=== PATIENT | female | born 1990 | race Caucasian/White ===

== ENCOUNTER 2017-09-13 10:29 | Observation (INO) ==
[2017-09-13] MEDS ORDERED: PROMETHAZINE 25 MG/1 ML VIAL IM PRN (11:28)
[2017-09-13] MEDS: DEXTROSE 5% LACTATED RINGERS 1,000 ML IV SCH ×2 (11:30→17:56)
[2017-09-13 12:03] LABS: Basophils # 0.1 10*3/uL (0.0-0.2); Basophils % 0.6 % (0.0-0.8); Eosinophils % 0.3 % (0.00-10.9); Hematocrit 37.6 VOL% (35.7-47.0); Hemoglobin 12.5 GM/DL (12.0-16.0); Immature Granulocytes % 0.6 %; Immature Granulocytes Absolute 0.05 #; Lymphocytes # 2.5 10*3/uL (1.4-4.0); Lymphocytes % 27.9 % (21.3-54.2); Mean Corpuscular HGB Conc 33.2 GM/DL (32-36); Mean Corpuscular Hemoglobin 31 PG (27-34); Mean Corpuscular Volume 94.5 FL (87-102); Mean Platelet Volume 9.3 FL (9.6-12.0); Monocytes # 0.4 10*3/uL (0.11-0.8); Monocytes % 3.9 % (1.7-12.7); Neutrophils # 5.9 10*3/uL (1.4-7.4); Neutrophils % 66.7 % (38.7-73.9); Platelet Count 269 T/CUMM (130-400); Red Blood Count 3.98 MC/CUMM (3.8-5.5); Red Cell Distribution Width 12.5 % (9.3-17.3); White Blood Count 8.9 T/CUMM (4-12)
[2017-09-13 12:33] LABS: Apearance,Urine CLOUDY (Clear); Bilirubin,Urine Negative (Negative); Blood, Urine Negative (Negative); Glucose,Urine (UA) Negative (Negative); Ketones,Urine Negative (Negative); Mucus,Urine Occasional /LPF (Occasional); Nitrite,Urine Negative (Negative); Protein,Urine Negative; Squamous Epithelial Cell,Urine Occasional /HPF (0-10); Urine Color Yellow (Yellow); Urine Specific Gravity 1.013 (1.001-1.035); Urine Urobilinogen < 2.0 EU/DL (0.2-1.0)
[2017-09-13] MEDS: ONDANSETRON 4 MG/2 ML VIAL IV PRN (16:12)
[2017-09-14] MEDS: DEXTROSE 5% LACTATED RINGERS 1,000 ML IV SCH (04:16)
[2017-09-14] MEDS: ONDANSETRON 4 MG/2 ML VIAL IV PRN (04:16)
[2017-09-14 07:11] VITALS: BP 103/58
[2017-09-14 07:17] LABS: Calcium 8.1 MG/DL (8.5-10.1); Osmolality,Calculated 274.5 MOS/KG (273-304); Potassium 3.9 MMOL/L (3.5-5.1)
[2017-09-14] MEDS ORDERED: METOCLOPRAMIDE 10 MG/2 ML VIAL IV SCH (08:00)
== END 2017-09-14 09:30 | disposition home or self-care (01) ==
LOC: N.OB
PROVIDERS: ADMIT Obstetrics & Gynecology; ATTEND Obstetrics & Gynecology

== ENCOUNTER 2020-02-20 12:14 | Inpatient (IN) ==
[2020-02-20] MEDS ORDERED: PROMETHAZINE 25 MG/1 ML VIAL IM PRN (12:16)
[2020-02-20] MEDS ORDERED: LACTULOSE 20 GM/30 ML UDCUP PO PRN (12:16)
[2020-02-20] MEDS ORDERED: diphenhydrAMINE 50 MG/1 ML VIAL IV PRN (12:24)
[2020-02-20 15:18] LABS: Basophils # 0.1 10*3/uL (0.0-0.2); Eosinophils # 0.1 10*3/uL (0.0-0.87); Eosinophils % 2.2 % (0.00-10.9); Hematocrit 38.5 VOL% (35.7-47.0); Immature Granulocytes % 0.2 %; Immature Granulocytes Absolute 0.01 #; Lymphocytes # 2.4 10*3/uL (1.4-4.0); Lymphocytes % 48.6 % (21.3-54.2); Mean Corpuscular HGB Conc 33.8 GM/DL (32-36); Mean Corpuscular Volume 93.9 FL (87-102); Mean Platelet Volume 8.9 FL (9.6-12.0); Monocytes % 8.3 % (1.7-12.7); Neutrophils % 39.7 % (38.7-73.9); Platelet Count 293 T/CUMM (130-400); Red Cell Distribution Width 11.9 % (9.3-17.3); White Blood Count 4.9 T/CUMM (4-12)
[2020-02-20] MEDS: ACETAMINOPHEN 325 MG TABLET PO SCH (15:24)
[2020-02-20] MEDS: HYDROmorphone 2 MG/1 ML VIAL IV PRN ×2 (15:26→19:46)
[2020-02-20] MEDS: SODIUM CHLORIDE 0.9% 1,000 ML IV SCH ×2 (15:30→22:42)
[2020-02-20 15:47] LABS: Calcium 8.7 MG/DL (8.5-10.1); Osmolality,Calculated 276.5 MOS/KG (273-304)
[2020-02-20] MEDS ORDERED: MAGNESIUM CITRATE 300 ML BOTTLE PO PRN (16:32)
[2020-02-20] MEDS: cefTRIAXone 1,000 MG in SYRINGE 1 EACH IV SCH (16:39)
[2020-02-20] MEDS: GENTAMICIN INJ 280 MG in SODIUM CHLORIDE 0.9% 100 ML IV SCH (18:12)
[2020-02-20 20:10] LABS: Bacteria,Urine Occasional /HPF (Few); Bilirubin,Urine Negative (Negative); Blood, Urine Negative (Negative); Glucose,Urine (UA) Negative (Negative); Ketones,Urine Negative (Negative); Mucus,Urine Occasional /LPF (Occasional); Nitrite,Urine Negative (Negative); Protein,Urine Negative; RBC,Urine 10 /HPF (0-4); Squamous Epithelial Cell,Urine Occasional /HPF (0-10); Urine Appearance Slightly Hazy (Clear); Urine Color Yellow (Yellow); Urine Specific Gravity 1.026 (1.001-1.035); Urine Urobilinogen < 2.0 EU/DL (0.2-1.0); WBC,Urine 4 /HPF (0-6)
[2020-02-20] MEDS: FAMOTIDINE 20 MG TABLET PO SCH (22:06)
[2020-02-20] MEDS: ENOXAPARIN 40 MG/0.4 ML SYRINGE SUBCUT SCH (22:06)
[2020-02-20] MEDS: ONDANSETRON 4 MG/2 ML VIAL IV PRN (22:14)
[2020-02-21] MEDS: ACETAMINOPHEN 325 MG TABLET PO SCH ×4 (01:32→18:06)
[2020-02-21] MEDS: SODIUM CHLORIDE 0.9% 1,000 ML IV SCH ×3 (03:00→23:30)
[2020-02-21] MEDS: ONDANSETRON 4 MG/2 ML VIAL IV PRN (04:12)
[2020-02-21] MEDS: HYDROmorphone 2 MG/1 ML VIAL IV PRN ×5 (04:25→20:36)
[2020-02-21 06:41] LABS: Basophils # 0.1 10*3/uL (0.0-0.2); Eosinophils # 0.1 10*3/uL (0.0-0.87); Eosinophils % 2.6 % (0.00-10.9); Hematocrit 37.1 VOL% (35.7-47.0); Hemoglobin 12.7 GM/DL (12.0-16.0); Immature Granulocytes % 0.4 %; Immature Granulocytes Absolute 0.02 #; Lymphocytes # 2.3 10*3/uL (1.4-4.0); Lymphocytes % 45.3 % (21.3-54.2); Mean Corpuscular HGB Conc 34.2 GM/DL (32-36); Mean Corpuscular Volume 95.6 FL (87-102); Mean Platelet Volume 9.4 FL (9.6-12.0); Monocytes % 8.3 % (1.7-12.7); Neutrophils % 42.4 % (38.7-73.9); Platelet Count 284 T/CUMM (130-400); Red Blood Count 3.88 MC/CUMM (3.8-5.5); Red Cell Distribution Width 11.9 % (9.3-17.3); White Blood Count 5.1 T/CUMM (4-12)
[2020-02-21 06:44] LABS: Calcium 7.3 MG/DL (8.5-10.1); Osmolality,Calculated 280.3 MOS/KG (273-304)
[2020-02-21] MEDS: TAMSULOSIN 0.4 MG CAPSULE PO SCH (08:28)
[2020-02-21] MEDS: DULoxetine 30 MG CAPSULE PO SCH (08:28)
[2020-02-21] MEDS ORDERED: INFLUENZA VIRUS VACCINE 0.5 ML SYRINGE IM ONE (09:00)
[2020-02-21] MEDS: cefTRIAXone 1,000 MG in SYRINGE 1 EACH IV SCH (16:17)
[2020-02-21] MEDS: GENTAMICIN INJ 280 MG in SODIUM CHLORIDE 0.9% 100 ML IV SCH (17:45)
[2020-02-21] MEDS: FAMOTIDINE 20 MG TABLET PO SCH (20:35)
[2020-02-21] MEDS: ENOXAPARIN 40 MG/0.4 ML SYRINGE SUBCUT SCH (20:38)
[2020-02-22] MEDS: ACETAMINOPHEN 325 MG TABLET PO SCH ×4 (00:27→17:01)
[2020-02-22] MEDS: HYDROmorphone 2 MG/1 ML VIAL IV PRN ×5 (04:41→22:35)
[2020-02-22] MEDS: SODIUM CHLORIDE 0.9% 1,000 ML IV SCH ×2 (05:17→12:04)
[2020-02-22 05:42] LABS: Basophils % 0.7 % (0.0-0.8); Eosinophils # 0.1 10*3/uL (0.0-0.87); Eosinophils % 2.4 % (0.00-10.9); Hematocrit 35.8 VOL% (35.7-47.0); Hemoglobin 11.7 GM/DL (12.0-16.0); Immature Granulocytes % 0.2 %; Immature Granulocytes Absolute 0.01 #; Lymphocytes # 2.5 10*3/uL (1.4-4.0); Lymphocytes % 54.5 % (21.3-54.2); Mean Corpuscular HGB Conc 32.7 GM/DL (32-36); Mean Platelet Volume 10.2 FL (9.6-12.0); Neutrophils % 33.2 % (38.7-73.9); Platelet Count 222 T/CUMM (130-400); Red Blood Count 3.73 MC/CUMM (3.8-5.5); White Blood Count 4.6 T/CUMM (4-12)
[2020-02-22 05:46] LABS: Calcium 7.7 MG/DL (8.5-10.1); Osmolality,Calculated 278.3 MOS/KG (273-304)
[2020-02-22 06:51] LABS: Eosinophils 2 % (0-10); Lymphocytes 54 % (20-55); Segmented Neutrophils 43 % (50-85); Total Cells Counted 100
[2020-02-22 06:53] LABS: Polychromasia Slight
[2020-02-22 06:57] LABS: Platelet Estimate Normal
[2020-02-22] MEDS: DULoxetine 30 MG CAPSULE PO SCH (09:22)
[2020-02-22] MEDS: TAMSULOSIN 0.4 MG CAPSULE PO SCH (09:22)
[2020-02-22] MEDS: cefTRIAXone 1,000 MG in SYRINGE 1 EACH IV SCH (15:28)
[2020-02-22] MEDS: PHENAZOPYRIDINE 95 MG TABLET PO SCH (16:09)
[2020-02-22] MEDS: GENTAMICIN INJ 280 MG in SODIUM CHLORIDE 0.9% 100 ML IV SCH (17:03)
[2020-02-22] MEDS: FAMOTIDINE 20 MG TABLET PO SCH (20:34)
[2020-02-22] MEDS: ENOXAPARIN 40 MG/0.4 ML SYRINGE SUBCUT SCH (20:35)
[2020-02-23] MEDS: ACETAMINOPHEN 325 MG TABLET PO SCH ×4 (00:39→18:01)
[2020-02-23] MEDS: SODIUM CHLORIDE 0.9% 1,000 ML IV SCH ×4 (05:40→21:09)
[2020-02-23 06:08] LABS: Basophils % 0.7 % (0.0-0.8); Eosinophils # 0.2 10*3/uL (0.0-0.87); Eosinophils % 2.6 % (0.00-10.9); Hematocrit 34.3 VOL% (35.7-47.0); Hemoglobin 11.3 GM/DL (12.0-16.0); Immature Granulocytes % 0.2 %; Immature Granulocytes Absolute 0.01 #; Lymphocytes # 3.1 10*3/uL (1.4-4.0); Lymphocytes % 52.7 % (21.3-54.2); Mean Corpuscular HGB Conc 32.9 GM/DL (32-36); Mean Corpuscular Volume 95.5 FL (87-102); Mean Platelet Volume 9.9 FL (9.6-12.0); Monocytes % 7.4 % (1.7-12.7); Neutrophils % 36.4 % (38.7-73.9); Platelet Count 253 T/CUMM (130-400); Red Blood Count 3.59 MC/CUMM (3.8-5.5); White Blood Count 5.8 T/CUMM (4-12)
[2020-02-23 06:34] LABS: Calcium 8.3 MG/DL (8.5-10.1); Osmolality,Calculated 279.1 MOS/KG (273-304)
[2020-02-23 06:51] LABS: Atypical Lymphocytes Few; Eosinophils 5 % (0-10); Lymphocytes 49 % (20-55); Segmented Neutrophils 40 % (50-85); Total Cells Counted 100
[2020-02-23 06:52] LABS: Microcytosis Slight; Platelet Estimate Normal
[2020-02-23] MEDS: HYDROmorphone 2 MG/1 ML VIAL IV PRN ×4 (08:23→22:08)
[2020-02-23] MEDS: TAMSULOSIN 0.4 MG CAPSULE PO SCH (08:24)
[2020-02-23] MEDS: PHENAZOPYRIDINE 95 MG TABLET PO SCH ×2 (08:24→18:01)
[2020-02-23] MEDS: DULoxetine 30 MG CAPSULE PO SCH (08:24)
[2020-02-23] MEDS ORDERED: SCOPOLAMINE 1.5 MG PATCH TRANSDERM ONE (14:45)
[2020-02-23] MEDS ORDERED: cefTRIAXone 1,000 MG VIAL ONE (15:19)
[2020-02-23] MEDS: cefTRIAXone 1,000 MG in SYRINGE 1 EACH IV SCH (15:48)
[2020-02-23] MEDS ORDERED: PROMETHAZINE 25 MG/1 ML VIAL ONE (16:40)
[2020-02-23] MEDS ORDERED: fentaNYL 100 MCG/2 ML VIAL ONE (16:40)
[2020-02-23] MEDS ORDERED: LIDOCAINE 2% 5 ML VIAL ONE (16:40)
[2020-02-23] MEDS ORDERED: SEVOFLURANE 1 UNIT/15 MINUTE INH ONE (16:40)
[2020-02-23] MEDS ORDERED: MIDAZOLAM 2 MG/2 ML VIAL ONE (16:40)
[2020-02-23] MEDS ORDERED: DEXAMETHASONE 4 MG/1 ML VIAL ONE (16:40)
[2020-02-23] MEDS ORDERED: propofoL 200 MG/20 ML VIAL IV ONE ×2 (16:40→16:41)
[2020-02-23] MEDS ORDERED: ONDANSETRON 4 MG/2 ML VIAL ONE (16:41)
[2020-02-23] MEDS ORDERED: ROCURONIUM 100 MG/10 ML VIAL IV ONE (16:41)
[2020-02-23] MEDS ORDERED: LACTATED RINGERS 1,000 ML IV ONE (16:41)
[2020-02-23] MEDS ORDERED: NEOSTIGMINE 10 MG/10 ML VIAL ONE (16:41)
[2020-02-23] MEDS ORDERED: GLYCOPYRROLATE 0.4 MG/2 ML VIAL ONE (16:41)
[2020-02-23] MEDS: GENTAMICIN INJ 280 MG in SODIUM CHLORIDE 0.9% 100 ML IV SCH (18:00)
[2020-02-23] MEDS: FAMOTIDINE 20 MG TABLET PO SCH (21:09)
[2020-02-23] MEDS: ENOXAPARIN 40 MG/0.4 ML SYRINGE SUBCUT SCH (21:09)
[2020-02-24] MEDS: HYDROmorphone 2 MG/1 ML VIAL IV PRN ×4 (00:09→10:19)
[2020-02-24] MEDS: ACETAMINOPHEN 325 MG TABLET PO SCH ×2 (00:09→05:41)
[2020-02-24] MEDS: SODIUM CHLORIDE 0.9% 1,000 ML IV SCH (07:43)
[2020-02-24] MEDS: TAMSULOSIN 0.4 MG CAPSULE PO SCH (08:01)
[2020-02-24] MEDS: DULoxetine 30 MG CAPSULE PO SCH (08:01)
[2020-02-24] MEDS: PHENAZOPYRIDINE 95 MG TABLET PO SCH (08:01)
[2020-02-24 08:33] VITALS: BP 107/64
[2020-02-26 23:36] LABS: Stone Source Left Ureter
== END 2020-02-24 11:13 | disposition home or self-care (01) | DRG 661 ==
LOC: SUATTDRO 14:30 → N.3E 14:43
PROVIDERS: ADMIT Internal Medicine; ATTEND Internal Medicine

== ENCOUNTER 2020-05-27 21:46 | Observation (INO) ==
[2020-05-27] MEDS ORDERED: PROMETHAZINE 25 MG/1 ML VIAL IM PRN (23:19)
[2020-05-27] MEDS: MORPHINE 4 MG/1 ML VIAL IV PRN (23:38)
[2020-05-27] MEDS: DEXTROSE 5% NACL 0.45% 1,000 ML IV SCH (23:53)
[2020-05-28] MEDS: MORPHINE 4 MG/1 ML VIAL IV PRN ×2 (03:30→11:07)
[2020-05-28] MEDS: ONDANSETRON 4 MG/2 ML VIAL IV PRN ×2 (03:30→11:04)
[2020-05-28 05:29] LABS: Basophils % 0.3 % (0.0-0.8); Eosinophils # 0.1 10*3/uL (0.0-0.87); Eosinophils % 1.2 % (0.00-10.9); Hematocrit 37.1 VOL% (35.7-47.0); Immature Granulocytes % 0.4 %; Immature Granulocytes Absolute 0.04 #; Lymphocytes # 3.3 10*3/uL (1.4-4.0); Lymphocytes % 36.6 % (21.3-54.2); Mean Corpuscular HGB Conc 32.3 GM/DL (32-36); Mean Corpuscular Volume 94.2 FL (87-102); Mean Platelet Volume 9.7 FL (9.6-12.0); Monocytes % 6.8 % (1.7-12.7); Neutrophils % 54.7 % (38.7-73.9); Platelet Count 328 T/CUMM (130-400); Red Blood Count 3.94 MC/CUMM (3.8-5.5); Red Cell Distribution Width 11.7 % (9.3-17.3)
[2020-05-28 05:38] LABS: Calcium 8.3 MG/DL (8.5-10.1); Osmolality,Calculated 275.5 MOS/KG (273-304); Potassium 3.7 MMOL/L (3.5-5.1)
[2020-05-28] MEDS: DEXTROSE 5% NACL 0.45% 1,000 ML IV SCH ×2 (09:42→16:45)
[2020-05-28] MEDS ORDERED: INFLUENZA VIRUS VACCINE 0.5 ML SYRINGE IM ONE (10:14)
[2020-05-28 12:17] VITALS: BP 99/65
[2020-05-28] MEDS: HYDROmorphone 2 MG/1 ML VIAL IV PRN ×2 (13:20→16:36)
== END 2020-05-28 16:45 | disposition home or self-care (01) ==
LOC: N.ED 21:46 → N.EDINP 21:46 → N.4E 05-28 10:09
PROVIDERS: ADMIT Surgery; ATTEND Surgery

== ENCOUNTER 2020-10-05 19:40 | Observation (INO) ==
[2020-10-05] MEDS ORDERED: KETOROLAC 30 MG/1 ML VIAL IV STA (22:12)
[2020-10-05] MEDS ORDERED: SODIUM CHLORIDE 0.9% 1,000 ML IV STA (22:12)
[2020-10-05] MEDS ORDERED: HYDROmorphone 2 MG/1 ML VIAL IV STA (22:12)
[2020-10-05] MEDS ORDERED: ONDANSETRON 4 MG/2 ML VIAL IV STA (22:12)
[2020-10-05 22:25] LABS: Basophils # 0.1 10*3/uL (0.0-0.2); Basophils % 0.6 % (0.0-0.8); Eosinophils # 0.2 10*3/uL (0.0-0.87); Eosinophils % 2.5 % (0.00-10.9); Hematocrit 37.1 VOL% (35.7-47.0); Hemoglobin 12.4 GM/DL (12.0-16.0); Immature Granulocytes % 0.2 %; Immature Granulocytes Absolute 0.02 #; Lymphocytes # 3.1 10*3/uL (1.4-4.0); Lymphocytes % 37.1 % (21.3-54.2); Mean Corpuscular HGB Conc 33.4 GM/DL (32-36); Mean Corpuscular Volume 94.9 FL (87-102); Mean Platelet Volume 9.5 FL (9.6-12.0); Monocytes % 7.4 % (1.7-12.7); Neutrophils % 52.2 % (38.7-73.9); Platelet Count 322 T/CUMM (130-400); Red Blood Count 3.91 MC/CUMM (3.8-5.5); Red Cell Distribution Width 12.2 % (9.3-17.3); White Blood Count 8.4 T/CUMM (4-12)
[2020-10-05 22:36] LABS: Bilirubin,Urine Negative (Negative); Blood, Urine Large mg/dL (Negative); Glucose,Urine (UA) Negative (Negative); Ketones,Urine Negative (Negative); Nitrite,Urine Negative (Negative); Protein,Urine 100 MG/DL; RBC,Urine 2998 /HPF (0-4); Squamous Epithelial Cell,Urine Occasional /HPF (0-10); Urine Appearance CLOUDY (Clear); Urine Color Amber (Yellow); Urine Urobilinogen < 2.0 EU/DL (0.2-1.0)
[2020-10-05 22:37] LABS: Alanine Aminotransferase 387 U/L (13-56); Albumin 3.5 G/DL (3.4-5.0); Alkaline Phosphatase 121 U/L (45-117); Amylase 41 U/L (25-115); Aspartate Amino Transferase 111 U/L (0-37); Bilirubin,Total < 0.39 MG/DL (0.2-1.0); Blood Urea Nitrogen 18 MG/DL (7-18); Carbon Dioxide 29 MMOL/L (21-32); Estimated Glom Filtration Rate 107 ML/MIN; Glucose 93 MG/DL (74-106); Osmolality,Calculated 274.8 MOS/KG (273-304); Sodium 137 MMOL/L (136-145); Total Protein 6.9 G/DL (6.4-8.2)
[2020-10-05] MEDS ORDERED: MEROPENEM 500 MG in SODIUM CHLORIDE 0.9% 100 ML IV ONE (23:05)
[2020-10-06] MEDS ORDERED: oxyCODONE/ACETAMINOPHEN 5-325 MG TABLET PO PRN (01:22)
[2020-10-06] MEDS ORDERED: ACETAMINOPHEN 325 MG TABLET PO PRN (01:22)
[2020-10-06] MEDS ORDERED: ONDANSETRON 4 MG/2 ML VIAL IV PRN (01:22)
[2020-10-06] MEDS ORDERED: PROMETHAZINE 25 MG/1 ML VIAL IM PRN (01:22)
[2020-10-06] MEDS: HYDROmorphone 2 MG/1 ML VIAL IV PRN ×7 (01:40→21:52)
[2020-10-06] MEDS: SODIUM CHLORIDE 0.9% 1,000 ML IV SCH ×4 (04:30→17:14)
[2020-10-06 05:31] LABS: Basophils % 0.5 % (0.0-0.8); Eosinophils # 0.3 10*3/uL (0.0-0.87); Immature Granulocytes % 0.4 %; Immature Granulocytes Absolute 0.03 #; Lymphocytes # 3.3 10*3/uL (1.4-4.0); Lymphocytes % 40.1 % (21.3-54.2); Mean Corpuscular HGB Conc 32.4 GM/DL (32-36); Mean Corpuscular Volume 96.6 FL (87-102); Mean Platelet Volume 9.7 FL (9.6-12.0); Monocytes % 9.8 % (1.7-12.7); Neutrophils % 46.2 % (38.7-73.9); Platelet Count 259 T/CUMM (130-400); Red Blood Count 3.52 MC/CUMM (3.8-5.5); Red Cell Distribution Width 12.4 % (9.3-17.3); White Blood Count 8.3 T/CUMM (4-12)
[2020-10-06 05:53] LABS: Albumin 2.7 G/DL (3.4-5.0); Bilirubin,Total 0.5 MG/DL (0.2-1.0); Calcium 8.1 MG/DL (8.5-10.1); Osmolality,Calculated 280.4 MOS/KG (273-304); Potassium 3.8 MMOL/L (3.5-5.1); Total Protein 5.8 G/DL (6.4-8.2)
[2020-10-06] MEDS ORDERED: MEROPENEM 500 MG in SODIUM CHLORIDE 0.9% 100 ML IV SCH (06:00)
[2020-10-06] MEDS: OXYBUTYNIN XL 10 MG TABLET PO SCH (08:59)
[2020-10-06] MEDS: TAMSULOSIN 0.4 MG CAPSULE PO SCH (09:00)
[2020-10-06] MEDS ORDERED: MELOXICAM 15 MG PO SCH (09:00)
[2020-10-06] MEDS ORDERED: NITROFURANTOIN MACRO/MONO 100 MG CAPSULE PO SCH (09:00)
[2020-10-06] MEDS: LISDEXAMFETAMINE 30 MG PO SCH (09:04)
[2020-10-06] MEDS: KETOROLAC 10 MG TABLET PO SCH (11:27)
[2020-10-06] MEDS: MEROPENEM 500 MG in SODIUM CHLORIDE 0.9% 100 ML IV SCH ×2 (13:13→21:56)
[2020-10-06 13:36] LABS: Hepatitis B Core IgM Quant 0.06 Index; Hepatitis B Surface Ag Quant 0.13 Index; Hepatitis B Surface Ag Result Non-Reactive (NonReactive); Hepatitis C Virus Ab Quant 0.05 Index; Hepatitis C Virus Ab Result Non-Reactive (NonReactive)
[2020-10-06] MEDS: PHENAZOPYRIDINE 95 MG TABLET PO SCH ×2 (14:38→17:47)
[2020-10-06] MEDS ORDERED: traZODone 50 MG TABLET PO SCH (21:00)
[2020-10-07] MEDS: HYDROmorphone 2 MG/1 ML VIAL IV PRN ×4 (01:01→14:42)
[2020-10-07] MEDS: SODIUM CHLORIDE 0.9% 1,000 ML IV SCH ×3 (04:29→14:46)
[2020-10-07] MEDS: MEROPENEM 500 MG in SODIUM CHLORIDE 0.9% 100 ML IV SCH ×2 (05:35→14:09)
[2020-10-07] MEDS: KETOROLAC 10 MG TABLET PO SCH ×2 (06:50→10:16)
[2020-10-07] MEDS: OXYBUTYNIN XL 10 MG TABLET PO SCH (08:55)
[2020-10-07] MEDS: TAMSULOSIN 0.4 MG CAPSULE PO SCH (08:56)
[2020-10-07] MEDS: PHENAZOPYRIDINE 95 MG TABLET PO SCH ×3 (08:56→17:12)
[2020-10-07] MEDS: LISDEXAMFETAMINE 30 MG PO SCH (10:16)
[2020-10-07 15:50] VITALS: BP 97/59
[2020-10-07 19:17] LABS: % Iron Saturation 12.5 % (18-50); Ferritin 15.3 ng/ml (8-252)
[2020-10-11 14:46] LABS: Antinuclear Ab, S 0.2 U
== END 2020-10-07 18:02 | disposition home or self-care (01) ==
LOC: N.ED 19:40 → N.EDINP 19:40 → N.3E 10-06 01:41
PROVIDERS: ADMIT Surgery; ATTEND Surgery

== ENCOUNTER 2020-11-08 09:40 | Observation (INO) ==
[2020-11-08 11:17] LABS: Amorphous Crystals,Urine Few /HPF (Few); Bacteria,Urine Occasional /HPF (Few); Bilirubin,Urine Negative (Negative); Blood, Urine Moderate mg/dL (Negative); Glucose,Urine (UA) Negative (Negative); Ketones,Urine Negative (Negative); Mucus,Urine Occasional /LPF (Occasional); Nitrite,Urine Negative (Negative); Protein,Urine Negative; RBC,Urine 79 /HPF (0-4); Squamous Epithelial Cell,Urine Occasional /HPF (0-10); Urine Appearance Slightly Hazy (Clear); Urine Color Yellow (Yellow); Urine Specific Gravity 1.018 (1.001-1.035); Urine Urobilinogen < 2.0 EU/DL (0.2-1.0)
[2020-11-08 11:22] LABS: Basophils % 0.6 % (0.0-0.8); Eosinophils # 0.1 10*3/uL (0.0-0.87); Eosinophils % 1.6 % (0.00-10.9); Hematocrit 37.6 VOL% (35.7-47.0); Hemoglobin 12.4 GM/DL (12.0-16.0); Immature Granulocytes % 0.2 %; Immature Granulocytes Absolute 0.01 #; Lymphocytes # 2.2 10*3/uL (1.4-4.0); Lymphocytes % 42.9 % (21.3-54.2); Mean Corpuscular Volume 94.2 FL (87-102); Mean Platelet Volume 9.8 FL (9.6-12.0); Monocytes % 9.2 % (1.7-12.7); Neutrophils % 45.5 % (38.7-73.9); Platelet Count 240 T/CUMM (130-400); Red Blood Count 3.99 MC/CUMM (3.8-5.5); Red Cell Distribution Width 11.9 % (9.3-17.3); White Blood Count 5.1 T/CUMM (4-12)
[2020-11-08 11:47] LABS: Albumin 3.5 G/DL (3.4-5.0); Bilirubin,Total 0.4 MG/DL (0.20-1.00); Calcium 8.7 MG/DL (8.5-10.1); Osmolality,Calculated 276.7 MOS/KG (273-304); Potassium 4.4 MMOL/L (3.5-5.1)
[2020-11-08] MEDS ORDERED: cefTRIAXone 1,000 MG in SODIUM CHLORIDE 0.9% 100 ML IV ONE ×2 (13:03→18:48)
[2020-11-08] MEDS ORDERED: HYDROmorphone 2 MG/1 ML VIAL IV STA (13:04)
[2020-11-08] MEDS ORDERED: ONDANSETRON 4 MG/2 ML VIAL IV STA (13:04)
[2020-11-08] MEDS: SODIUM CHLORIDE 0.9% 1,000 ML IV SCH (13:45)
[2020-11-08] MEDS ORDERED: HYDROmorphone 2 MG/1 ML VIAL IV ONE (16:46)
[2020-11-08] MEDS ORDERED: DEXAMETHASONE 4 MG/1 ML VIAL ONE ×2 (17:14→18:31)
[2020-11-08] MEDS ORDERED: MIDAZOLAM 2 MG/2 ML VIAL ONE (17:14)
[2020-11-08] MEDS ORDERED: propofoL 200 MG/20 ML VIAL IV ONE (17:14)
[2020-11-08] MEDS ORDERED: LIDOCAINE 2% 5 ML VIAL ONE (17:14)
[2020-11-08] MEDS ORDERED: ONDANSETRON 4 MG/2 ML VIAL ONE (17:14)
[2020-11-08] MEDS ORDERED: SEVOFLURANE 1 UNIT/15 MINUTE INH ONE (17:17)
[2020-11-08] MEDS ORDERED: GENTAMICIN 80 MG/2 ML VIAL ONE (18:20)
[2020-11-08] MEDS ORDERED: ePHEDrine 50 MG/ML VIAL ONE (18:25)
[2020-11-08] MEDS ORDERED: PHENYLEPHRINE 1 MG/10 ML SYRINGE IV ONE ×2 (18:28→18:32)
[2020-11-08] MEDS: LACTATED RINGERS 1,000 ML IV SCH (18:45)
[2020-11-08] MEDS ORDERED: PROMETHAZINE INJ 25 MG in SODIUM CHLORIDE 0.9% 50 ML IV PRN (18:46)
[2020-11-08] MEDS ORDERED: ONDANSETRON 4 MG/2 ML VIAL IV PRN (18:46)
[2020-11-08] MEDS ORDERED: diphenhydrAMINE 50 MG/1 ML VIAL IV PRN (18:46)
[2020-11-08] MEDS ORDERED: MEPERIDINE 25 MG/1 ML VIAL IV PRN (18:46)
[2020-11-08] MEDS ORDERED: PHENAZOPYRIDINE 95 MG TABLET PO PRN (18:48)
[2020-11-08] MEDS ORDERED: KETOROLAC 15 MG/1 ML VIAL IV PRN (18:50)
[2020-11-08] MEDS ORDERED: KETOROLAC 30 MG/1 ML VIAL ONE (19:01)
[2020-11-08] MEDS: HYDROmorphone 2 MG/1 ML VIAL IV PRN ×4 (19:05→19:20)
[2020-11-08] MEDS ORDERED: SODIUM CHLORIDE 0.9% 100 ML IV ONE (19:38)
[2020-11-09] MEDS: LACTATED RINGERS 1,000 ML IV SCH (00:27)
[2020-11-09] MEDS: HYDROmorphone 2 MG/1 ML VIAL IV PRN ×2 (01:31→06:50)
[2020-11-09] MEDS: SODIUM CHLORIDE 0.9% 1,000 ML IV SCH ×2 (03:54→07:18)
[2020-11-09 07:56] VITALS: BP 88/49
== END 2020-11-09 08:54 | disposition home or self-care (01) ==
LOC: N.ED 09:40 → N.EDINP 09:40 → N.3E 17:20
PROVIDERS: ADMIT Surgery; ATTEND Surgery

== ENCOUNTER 2022-02-26 17:24 | Observation (INO) ==
[2022-02-26 18:07] LABS: Basophils % 0.6 % (0.0-0.8); Eosinophils # 0.1 10*3/uL (0.0-0.87); Eosinophils % 1.2 % (0.00-10.9); Hematocrit 36.8 VOL% (35.7-47.0); Hemoglobin 12.2 GM/DL (12.0-16.0); Immature Granulocytes % 0.1 %; Immature Granulocytes Absolute 0.01 #; Lymphocytes # 2.7 10*3/uL (1.4-4.0); Lymphocytes % 38.1 % (21.3-54.2); Mean Corpuscular HGB Conc 33.2 GM/DL (32-36); Mean Corpuscular Volume 94.4 FL (87-102); Mean Platelet Volume 9.4 FL (9.6-12.0); Monocytes # 0.6 10*3/uL (0.11-0.8); Monocytes % 9.2 % (1.7-12.7); Neutrophils % 50.8 % (38.7-73.9); Platelet Count 268 T/CUMM (130-400); Red Cell Distribution Width 12.3 % (9.3-17.3)
[2022-02-26] MEDS ORDERED: KETOROLAC 30 MG/1 ML VIAL ONE (18:20)
[2022-02-26] MEDS ORDERED: ONDANSETRON 4 MG/2 ML VIAL ONE (18:20)
[2022-02-26] MEDS ORDERED: MORPHINE 2 MG/1 ML SYRINGE ONE ×2 (18:20)
[2022-02-26 18:27] LABS: Alanine Aminotransferase 49 U/L (13-56); Albumin 3.7 G/DL (3.4-5.0); Alkaline Phosphatase 45 U/L (45-117); Aspartate Amino Transferase 29 U/L (0-37); Bilirubin,Total < 0.39 MG/DL (0.20-1.00); Blood Urea Nitrogen 18 MG/DL (7-18); Calcium 9.1 MG/DL (8.5-10.1); Carbon Dioxide 26 MMOL/L (21-32); Chloride 110 MMOL/L (98-107); Glucose 95 MG/DL (74-106); Osmolality,Calculated 280.4 MOS/KG (273-304); Sodium 140 MMOL/L (136-145); Total Protein 6.5 G/DL (6.4-8.2)
[2022-02-26] MEDS ORDERED: MORPHINE 2 MG/1 ML SYRINGE IV STA ×2 (18:37→22:02)
[2022-02-26] MEDS ORDERED: ONDANSETRON 4 MG/2 ML VIAL IV ONE (18:37)
[2022-02-26] MEDS ORDERED: KETOROLAC 30 MG/1 ML VIAL IV STA (18:37)
[2022-02-26] MEDS ORDERED: SODIUM CHLORIDE 0.9% 1,000 ML IV STA (18:37)
[2022-02-26 19:15] LABS: Bacteria,Urine Occasional /HPF (Few); Mucus,Urine Occasional /LPF (Occasional); RBC,Urine 5 /HPF (0-4); Squamous Epithelial Cell,Urine Few /HPF (0-10)
[2022-02-26 19:26] LABS: Bilirubin,Urine Negative (Negative); Glucose,Urine (UA) Negative (Negative); Ketones,Urine Negative (Negative); Nitrite,Urine Negative (Negative); Protein,Urine Negative (Negative); Urine Appearance Clear (Clear); Urine Color Yellow (Yellow); Urine Specific Gravity 1.015 (1.001-1.035); Urine pH 7.5 (4.5-8.0)
[2022-02-26 19:27] LABS: Blood, Urine Trace mg/dL (Negative); Urine Urobilinogen 0.2 eU/dL (<2.0)
[2022-02-26] MEDS ORDERED: ACETAMINOPHEN 325 MG TABLET PO PRN (19:41)
[2022-02-26] MEDS ORDERED: ONDANSETRON 4 MG/2 ML VIAL IV PRN (19:41)
[2022-02-26] MEDS: SODIUM CHLORIDE 0.45% 1,000 ML IV SCH (20:18)
[2022-02-26] MEDS: cefTRIAXone 1,000 MG in SODIUM CHLORIDE 0.9% 100 ML IV SCH (20:51)
[2022-02-26] MEDS: PROMETHAZINE 25 MG/1 ML VIAL IM PRN (20:51)
[2022-02-27] MEDS: MORPHINE 2 MG/1 ML SYRINGE IV PRN ×5 (00:30→19:46)
[2022-02-27] MEDS: SODIUM CHLORIDE 0.45% 1,000 ML IV SCH ×3 (03:20→20:52)
[2022-02-27 05:59] LABS: Basophils % 0.4 % (0.0-0.8); Eosinophils # 0.1 10*3/uL (0.0-0.87); Eosinophils % 1.9 % (0.00-10.9); Hematocrit 34.1 VOL% (35.7-47.0); Immature Granulocytes % 0.2 %; Immature Granulocytes Absolute 0.01 #; Lymphocytes # 2.5 10*3/uL (1.4-4.0); Lymphocytes % 46.5 % (21.3-54.2); Mean Corpuscular HGB Conc 32.3 GM/DL (32-36); Mean Corpuscular Volume 96.6 FL (87-102); Mean Platelet Volume 9.6 FL (9.6-12.0); Monocytes # 0.5 10*3/uL (0.11-0.8); Monocytes % 8.9 % (1.7-12.7); Neutrophils % 42.1 % (38.7-73.9); Platelet Count 218 T/CUMM (130-400); Red Blood Count 3.53 MC/CUMM (3.8-5.5); Red Cell Distribution Width 12.5 % (9.3-17.3); White Blood Count 5.4 T/CUMM (4-12)
[2022-02-27 06:17] LABS: Calcium 7.7 MG/DL (8.5-10.1); Osmolality,Calculated 283.1 MOS/KG (273-304); Potassium 3.8 MMOL/L (3.5-5.1)
[2022-02-27] MEDS ORDERED: FLUCONAZOLE 200 MG TABLET PO ONE (14:10)
[2022-02-27] MEDS: cefTRIAXone 1,000 MG in SODIUM CHLORIDE 0.9% 100 ML IV SCH (20:52)
[2022-02-28] MEDS: MORPHINE 2 MG/1 ML SYRINGE IV PRN ×9 (00:20→18:50)
[2022-02-28] MEDS: SODIUM CHLORIDE 0.45% 1,000 ML IV SCH ×3 (04:18→21:32)
[2022-02-28] MEDS ORDERED: cefTRIAXone 1,000 MG in SODIUM CHLORIDE 0.9% 100 ML IV ONE (09:00)
[2022-02-28] MEDS: KETOROLAC 15 MG/1 ML VIAL IV PRN ×2 (10:49→19:10)
[2022-02-28] MEDS ORDERED: MIDAZOLAM 2 MG/2 ML VIAL ONE (17:10)
[2022-02-28] MEDS ORDERED: LIDOCAINE 2% 5 ML VIAL ONE (17:10)
[2022-02-28] MEDS ORDERED: SEVOFLURANE 1 UNIT/15 MINUTE INH ONE ×3 (17:10→17:31)
[2022-02-28] MEDS ORDERED: propofoL 200 MG/20 ML VIAL IV ONE (17:10)
[2022-02-28] MEDS ORDERED: fentaNYL 100 MCG/2 ML VIAL ONE (17:11)
[2022-02-28] MEDS ORDERED: ONDANSETRON 4 MG/2 ML VIAL ONE (17:31)
[2022-02-28] MEDS ORDERED: ONDANSETRON 4 MG/2 ML VIAL IV PRN ×2 (18:33→18:53)
[2022-02-28] MEDS ORDERED: MORPHINE 10 MG/1 ML VIAL ONE (18:35)
[2022-02-28] MEDS ORDERED: MEPERIDINE 25 MG/1 ML VIAL ONE (18:41)
[2022-02-28] MEDS ORDERED: diphenhydrAMINE 50 MG/1 ML VIAL IV PRN (18:53)
[2022-02-28] MEDS ORDERED: PROMETHAZINE INJ 25 MG in SODIUM CHLORIDE 0.9% 50 ML IV PRN (18:53)
[2022-02-28] MEDS ORDERED: HYDROmorphone 1 MG/1 ML SYRINGE IV PRN (18:53)
[2022-02-28] MEDS: MEPERIDINE 25 MG/1 ML VIAL IV PRN ×2 (19:00→19:10)
[2022-02-28] MEDS ORDERED: KETOROLAC 30 MG/1 ML VIAL ONE (19:07)
[2022-02-28] MEDS: cefTRIAXone 1,000 MG in SODIUM CHLORIDE 0.9% 100 ML IV SCH (21:31)
[2022-03-01] MEDS: PROMETHAZINE 25 MG/1 ML VIAL IM PRN (02:03)
[2022-03-01] MEDS: MORPHINE 2 MG/1 ML SYRINGE IV PRN ×2 (02:03→07:49)
[2022-03-01 04:12] VITALS: BP 121/64
== END 2022-03-01 10:23 | disposition home or self-care (01) ==
LOC: N.EDINP 17:24 → N.ED 17:24 → N.5E 21:43
PROVIDERS: ADMIT Surgery; ATTEND Surgery